=== PATIENT | male | born 1970 | race Caucasian/White ===

== ENCOUNTER 2020-10-25 06:08 | Day surgery (SDC) | payer OTHER ==
[2020-10-21 18:59] VITALS: BMI 42.7
[2020-10-25] MEDS ORDERED: BUPIVACAINE HCL/EPINEPHRINE/PF 30 ML VIAL IJ ONE (07:29)
[2020-10-25] MEDS ORDERED: LIDOCAINE HCL/PF 2% SDV 5ML VIAL ONE (07:40)
[2020-10-25] MEDS ORDERED: MIDAZOLAM HCL 2 MG/2 ML SINGLE DOSE VIAL ONE (07:40)
[2020-10-25] MEDS ORDERED: PROPOFOL 20 ML ONE ×2 (07:40→07:54)
[2020-10-25] MEDS ORDERED: ceFAZolin SODIUM 1 GM VIAL ONE (07:49)
[2020-10-25] MEDS ORDERED: KETOROLAC TROMETHAMINE 30 MG/1 ML VIAL ONE (08:03)
[2020-10-25] MEDS ORDERED: ONDANSETRON 4 MG/2 ML VIAL ONE (08:03)
[2020-10-25] MEDS ORDERED: ACETAMINOPHEN 500 MG TABLET (FP) PO PRN (08:18)
[2020-10-25] MEDS ORDERED: oxyCODONE HCL 5 MG TABLET PO PRN (08:18)
[2020-10-25] MEDS ORDERED: ONDANSETRON 4 MG/2 ML VIAL IVPUSH PRN (08:18)
[2020-10-25] MEDS ORDERED: LACTATED RINGERS SOLUTION 1,000 ML IV SCH (08:30)
[2020-10-25 09:12] VITALS: PULSE 66; TEMP 97.8
[2020-10-25 09:50] VITALS: BP 117/62
== END 2020-10-25 10:15 | disposition home or self-care (01) ==
LOC: FASU 06:08
PROVIDERS: ATTEND Orthopaedic Surgery
PROC: 0LN33ZZ Release Right Upper Arm Tendon, Percutaneous Approach (ICD-10-PCS; principal; 2020-10-25 08:04)
DX: M77.11 Lateral epicondylitis, right elbow (principal)
CPT/HCPCS: 94760